=== PATIENT | male | born 1965 | race Caucasian/White ===

== ENCOUNTER 2018-07-13 08:23 | Emergency (ER) | payer OTHER ==
[~2018-07-13] VITALS: Ht 170.2 cm; Wt 82.1 kg
[2018-07-13 08:26] VITALS: Ht 170.2 cm; Wt 82.1 kg
[2018-07-13 09:36] LABS: RED CELL DISTRIBUTION WIDTH 14.1 % (11.5-14.5)
[2018-07-13 09:38] LABS: CALCIUM 9.6 mg/dL (8.5-10.1); CHLORIDE SERUM 101 mmol/L (98-107); GFR1 > 60 mL/min; GLUCOSE SERUM 109 mg/dL (74-106); POTASSIUM SERUM 4.3 mmol/L (3.5-5.1); SODIUM SERUM 134 mmol/L (136-145)
[2018-07-13 09:43] LABS: ALKALINE PHOSPHATASE 97 U/L (46-116); ALT/SGPT 47 U/L (16-63); AST/SGOT 40 U/L (15-37); BILIRUBIN TOTAL 0.41 mg/dL (0.20-1.00)
[2018-07-13 09:52] LABS: BASOPHIL % 0.4 % (0-2); PLATELET COUNT 264 x10^3mcL (130-400)
[2018-07-13 09:57] LABS: microscopic required? NO
[2018-07-13 10:38] LABS: urine erythrocyte NEGATIVE (NEGATIVE)
[2018-07-13 11:55] LABS: TOTAL PROTEIN CSF 52.4 mg/dL (15-45)
[2018-07-13 12:59] LABS: APPEARANCE CSF CLEAR; COLOR CSF COLORLESS; RBC CSF 106 /cumm (0); WBC CSF 3 /cumm (0-5)
[2018-07-13 13:48] VITALS: BP 131/85
== END 2018-07-13 13:48 | disposition home or self-care (01) ==
LOC: ED 08:23
PROVIDERS: Emergency Medicine
DX: J40 Bronchitis, not specified as acute or chronic (principal); R51 Headache; J45.909 Unspecified asthma, uncomplicated; G89.29 Other chronic pain; M54.9 Dorsalgia, unspecified
CPT/HCPCS: 62272; J0696; J1885; J2001; J2270; J2405; J7030; Q0092

== ENCOUNTER 2018-07-16 08:17 | Emergency (ER) | payer OTHER ==
[~2018-07-16] VITALS: Ht 170.2 cm; Wt 79.2 kg
[2018-07-16 08:20] VITALS: Ht 170.2 cm; Wt 79.2 kg
[2018-07-16 09:17] LABS: BASOPHIL % 0.6 % (0-2); PLATELET COUNT 232 x10^3mcL (130-400); RED CELL DISTRIBUTION WIDTH 14.2 % (11.5-14.5)
[2018-07-16 09:28] LABS: CALCIUM 9.2 mg/dL (8.5-10.1); CARBON DIOXIDE 26.6 mmol/L (21-32); CHLORIDE SERUM 101 mmol/L (98-107); CREATININE SERUM 0.9 mg/dL (0.7-1.3); GFR1 > 60 mL/min; GLUCOSE SERUM 118 mg/dL (74-106); POTASSIUM SERUM 3.6 mmol/L (3.5-5.1); SODIUM SERUM 138 mmol/L (136-145)
[2018-07-16 09:33] LABS: ALBUMIN 3.5 g/dL (3.4-5.0); ALKALINE PHOSPHATASE 130 U/L (46-116); ALT/SGPT 181 U/L (16-63); AST/SGOT 86 U/L (15-37); BILIRUBIN TOTAL 0.37 mg/dL (0.20-1.00); CHOLESTEROL 161 mg/dL (<200); HDL CHOLESTEROL 41 mg/dL (40-60); TOTAL PROTEIN, SERUM 7.7 g/dL (6.4-8.2)
[2018-07-16 11:26] LABS: UA SPECIFIC GRAVITY 1.025 (1.005-1.035); microscopic required? YES; urine erythrocyte TRACE (NEGATIVE)
[2018-07-16 11:40] VITALS: BP 121/77
[2018-07-16] MEDS ORDERED: IBUPROFEN400 MG (12:42)
[2018-07-16] MEDS ORDERED: VIC (12:42)
== END 2018-07-16 13:24 | disposition home or self-care (01) ==
LOC: ED 08:17
PROVIDERS: Emergency Medicine
DX: J45.901 Unspecified asthma with (acute) exacerbation (principal); B34.9 Viral infection, unspecified; F17.210 Nicotine dependence, cigarettes, uncomplicated; G89.29 Other chronic pain; M54.9 Dorsalgia, unspecified
CPT/HCPCS: 87804; 99406; J1885; J2930; J7030; J7613; Q0092